=== PATIENT | female | born 1960 | race Caucasian/White ===

== ENCOUNTER → 2016-10-05 | Outpatient (CLI) | payer OTHER ==
--- NOTE | 2016-10-05 16:59 | MA ---
Screening Digital Mammogram with iCAD Analysis Clinical Indications: 55-year-old female with left breast DCIS diagnosed 2008, with a subsequent lum pectomy and radiation therapy. The patient has a strong family history with a grandmother, mother, si ster, and aunts with breast cancer. The patient presents today for routine annual mammographic screen ing. Technique: Standard cephalocaudal projections are obtained. Digital breast tomosynthesis was performe d in the MLO projection with reconstruction at 1.0 mm slice thickness, and composite MLO views were r econstructed. This examination is processed by the iCAD computer aided detection system. Comparison Studies: Bilateral digital screening mammography dated September 05, 2015, July 11, 2014, July 01, 2013, May 29, 2012, and May 23, 2011. A surgical lumpectomy clip is seen in the outer left breast. Breast Density: Type C (Heterogeneously dense). Findings: CAD was reviewed. There are no new masses, suspicious microcalcifications, or secondary sig ns of malignancy identified. There has been no significant change in the appearance of either breast. Impression: Negative mammography. BI-RADS Category 1. Recommendation: Routine mammographic screening in one year as long as physical examination is negativ e in this patient with heterogeneously dense breast parenchyma. [facility] will send a result letter to the patient. Negative mammography should not preclude additional workup of a clinically suspicious finding. The patient's information is entered into a reminder system with a target due date for her next mammo gram.
== END ==
LOC: FIMAGING 11:32
PROVIDERS: ATTEND Internal Medicine Hematology & Oncology
DX: Z12.31 Encounter for screening mammogram for malignant neoplasm of breast (principal); Z80.3 Family history of malignant neoplasm of breast; Z85.3 Personal history of malignant neoplasm of breast
CPT/HCPCS: G0202

== ENCOUNTER → 2017-10-09 | Outpatient (CLI) | payer OTHER | LOC: FIMAGING 10:44 | PROVIDERS: ATTEND Obstetrics & Gynecology Gynecology | DX: Z12.31 Encounter for screening mammogram for malignant neoplasm of breast (principal); Z85.3 Personal history of malignant neoplasm of breast ==

== ENCOUNTER → 2018-11-04 | Outpatient (CLI) | payer OTHER | LOC: FIMAGING 08:57 | PROVIDERS: ATTEND Obstetrics & Gynecology Gynecology | DX: Z12.31 Encounter for screening mammogram for malignant neoplasm of breast (principal); Z85.3 Personal history of malignant neoplasm of breast; Z80.3 Family history of malignant neoplasm of breast ==